=== PATIENT | female | born 1970 | race American Indian/Alaskan Native ===

== ENCOUNTER 2021-01-25 10:41 | Emergency (ER) | payer OTHER ==
[~2021-01-25] VITALS: Ht 157.5 cm; Wt 79.4 kg
[2021-01-25 10:53] VITALS: BP 135/70; TEMP 97.7
[2021-01-25 11:48] LABS: PLATELET COUNT 317 K/uL (152-353)
[2021-01-25 12:08] LABS: POTASSIUM 3.9 mmol/L (3.6-5.2)
== END 2021-01-25 14:12 | disposition home or self-care (01) ==
LOC: ED 10:41
PROVIDERS: Emergency Medicine Emergency Medical Services
DX: N93.8 Other specified abnormal uterine and vaginal bleeding (principal); N39.0 Urinary tract infection, site not specified
CPT/HCPCS: 80048; 81000; 81025; 85027; 87086; 87088; 87490; 87590; 96360; 96365; 99284; J0696